=== PATIENT | male | born 1980 | race Caucasian/White ===

== ENCOUNTER 2018-12-15 13:35 | Emergency (ER) | payer SELFPAY ==
--- NOTE | 2018-12-15 13:55 | PDOC ---
Rapid Medical Evaluation Time Seen by Provider: 12/15/18 13:49 Medical Evaluation: I have performed a brief in-person evaluation of this patient. The patient presents with a chief complaint of: substernal CP x 1 month along with slight SOB, worsening this week; hx of HLD; has not yet seen PCP regarding this; +smoker (3-4 cigs/day), denies drug use Pertinent physical exam findings: In nad, lungs clear I have ordered the following: labs, EKG, cxr The patient will proceed to the ED for further evaluation. 12/15/18 13:51
[2018-12-15 13:57] VITALS: BP 126/76; PULSE 68; TEMP 98.2; BMI 24.2
--- NOTE | 2018-12-15 14:15 | EKG ---
Test Reason : Blood Pressure : / mmHG Vent. Rate : 061 BPM Atrial Rate : 061 BPM P-R Int : 154 ms QRS Dur : 096 ms QT Int : 390 ms P-R-T Axes : 057 042 047 degrees QTc Int : 392 ms NORMAL SINUS RHYTHM NON-SPECIFIC INTRA-VENTRICULAR CONDUCTION DELAY NO PREVIOUS ECGS AVAILABLE Confirmed by JIMMIE DIAZ MD ([id number]) on 12/15/2018 2:14:43 PM Referred By: Confirmed By:JIMMIE DIAZ MD
--- NOTE | 2018-12-15 16:39 | PDOC ---
History of Present Illness - General Chief Complaint: Chest Pain Stated Complaint: CHEST PAIN Time Seen by Provider: 12/15/18 13:49 - History of Present Illness Initial Comments: 12/15/18 16:31 CHIEF COMPLAINT: chest pain HISTORY OF PRESENT ILLNESS: 38 yo M with no PMH presents to ED with chest pain x 1 month, worsening in the last two weeks. Patient describes the pain as intermittent and as a pressure, 5/10 and today the pain was worse so he came to be evaluated. Patient reports one episode of vomiting today. Patient also c/ o of a "pressure headache" that began at the same time as his chest discomfort. No recent travel or sick contacts. PAST MEDICAL HISTORY: Denies past medical history FAMILY HISTORY: Denies SOCIAL HISTORY: Current smoker, 5 cigarettes daily. Denies alcohol, illicit drug use. SURGICAL HISTORY: appendectomy ALLERGIES: No known drug allergies REVIEW OF SYSTEMS General/Constitutional: Denies fever or chills. Denies weakness, weight change. HEENT: Denies change in vision. Denies ear pain or discharge. Denies sore throat. Cardiovascular: Worsening chest pain x 1 month. . Respiratory: Denies cough, wheezing, or hemoptysis. Gastrointestinal: Denies nausea, vomiting, diarrhea or constipation. Denies rectal bleeding. Genitourinary: Denies dysuria, frequency, or change in urination. Musculoskeletal: Denies joint or muscle swelling or pain. Denies neck or back pain. Skin and breasts: Denies rash or easy bruising. Neurologic: Denies headache, vertigo, loss of consciousness, or loss of sensation. Psychiatric: Denies depression or anxiety. PHYSICAL EXAM General Appearance: Well-appearing, appropriately dressed. No apparent distress , no intoxication. HEENT: EOMI, PERRLA, normal ENT inspection, normal voice, TMs normal, pharynx normal. No conjunctival pallor. No photophobia, scleral icterus. Neck: Supple. Trachea midline. No tenderness, rigidity, carotid bruit, stridor , lymphadenopathy, or thyromegaly. Respiratory/Chest: Lungs CTAB. No shortness of breath, chest tenderness, respiratory distress, accessory muscle use. No crackles, rales, rhonchi, stridor , wheezing, dullness Cardiovascular: RRR. S1, S2. No JVD, murmur, bradycardia, tachycardia. Vascular Pulses: Dorsalis-Pedis (R): 2+, Dorsalis-Pedis (L): 2+ Gastrointestinal/Abdominal: Normal bowel sounds. Abdomen soft, non-distended. No tenderness or rebound tenderness. No organomegaly, pulsatile mass, guarding , hernia, hepatomegaly, splenomegaly. Lymphatic: No adenopathy, tenderness. Musculoskeletal/Extremities: Normal inspection. FROM of all extremities, normal capillary refill. Pelvis Stable. No CVA tenderness. No tenderness to extremities, pedal edema, swelling, erythema or deformity. Integumentary: Appropriate color, dry, warm. No cyanosis, erythema, jaundice or rash Neurologic: melter assistant II-XII intact. Fully oriented, alert. Appropriate mood/affect. Motor strength 5/5. No appreciable EOM palsy, facial droop or sensory deficit. 12/15/18 16:39 Past History - Past Medical History Allergies/Adverse Reactions: Allergies Allergy/AdvReac Type Severity Reaction Status Date / Time No Known Allergies Allergy Verified 12/15/18 13:53 Home Medications: Ambulatory Orders Docusate Sodium [Colace] 100 mg PO DAILY #14 capsule 12/15/18 COPD: No Hypercholesterolemia: Yes - Immunization History Immunization Up to Date: Yes - Suicide/Smoking/Psychosocial Hx Smoking History: Current every day smoker Number of Cigarettes Smoked Daily: 3 Information on smoking cessation initiated: No Drug/Substance Use Hx: No *Physical Exam - Vital Signs Last Vital Signs Temp Pulse Resp BP Pulse Ox 98.2 F 68 16 126/76 99 12/15/18 13:54 12/15/18 13:54 12/15/18 13:54 12/15/18 13:54 12/15/18 13:54 Heart Score/ECG Review - History History: Slightly suspicious - Electrocardiogram EKG: Normal - Age Age: </= 45 - Risk Factors Risk Factors Heart Score: Yes Smoking History Based on the list above the patient has:: 1-2 risk factors - Troponin Troponin: </= normal limit - Score Heart Score - Total: 1 ED Treatment Course - LABORATORY CBC & Chemistry Diagram: 12/15/18 18:05 12/15/18 18:05 - ADDITIONAL ORDERS Additional order review: Laboratory Results 12/15/18 12/15/18 18:05 18:05 Sodium 140 Potassium 3.9 Chloride 107 Carbon Dioxide 27 Anion Gap 7 L BUN 11.4 Creatinine 0.9 Est GFR (CKD-EPI)AfAm 124.26 Est GFR (CKD-EPI)NonAf 107.21 Random Glucose 92 Calcium 9.4 Total Bilirubin 0.5 AST 29 ALT 48 Alkaline Phosphatase 97 Troponin I < 0.02 Total Protein 7.7 Albumin 4.3 12/15/18 18:05 RBC 4.77 MCV 91.1 MCHC 33.9 RDW 13.5 MPV 8.6 Neutrophils % 67.8 Lymphocytes % 23.1 Monocytes % 6.0 Eosinophils % 2.1 Basophils % 1.0 Medical Decision Making - Medical Decision Making 12/15/18 16:41 38 yo M with no PMH presents to ED with chest pain x 1 month, worsening in the last two weeks. -labs, ekg, cxr 12/15/18 16:46 EKG NSR. Lab unremarkable 12/16/18 01:06 Advised patient to take medication as prescribed and follow up with cardiology. Advised patient of signs and symptoms for return to ED. Patient verbalized understanding and agrees to plan. *DC/Admit/Observation/Transfer Diagnosis at time of Disposition: Constipation Chest pain Qualifiers: Chest pain type: unspecified Qualified Code(s): R07.9 - Chest pain, unspecified - Discharge Dispostion Disposition: HOME Condition at time of disposition: Stable Decision to Admit order: No - Prescriptions Prescriptions: Docusate Sodium [Colace] 100 mg PO DAILY #14 capsule - Referrals Referrals: Gordon Hooper MD [Staff Physician] - - Patient Instructions Printed Discharge Instructions: DI for Atypical Chest Pain, DI for Constipation Additional Instructions: Please follow up with cardiology within the next week for further evaluation of your chest pain. If you develop worsening chest pain, shortness of breath, or any new or worsening symptoms, please return to the ER. Print Language: BELARUSIAN - Post Discharge Activity
[2018-12-15 18:14] LABS: EOS % 2.1 % (0-4.5); HEMATOCRIT 43.5 % (35.4-49); HEMOGLOBIN 14.7 GM/dL (11.7-16.9); LYMPH % 23.1 % (8-40); MCH 30.9 pg (25.7-33.7); MCHC 33.9 g/dl (32.0-35.9); MEAN CELL VOLUME 91.1 fl (80-96); MEAN PLT VOLUME 8.6 fl (7.5-11.1); NEUT % 67.8 % (42.8-82.8); PLATELET COUNT 280 K/MM3 (134-434); RBC 4.77 M/mm3 (4.00-5.60); RDW 13.5 % (11.9-15.9); WHITE BLOOD COUNT 6.9 K/mm3 (4.0-10.0)
[2018-12-15 18:34] LABS: ALBUMIN 4.3 g/dl (3.4-5.0); BILIRUBIN,TOTAL 0.5 mg/dL (0.2-1); BLOOD UREA NITROGEN 11.4 mg/dL (7-18); CALCIUM 9.4 mg/dL (8.5-10.1); CREATININE 0.9 mg/dL (0.55-1.3); POTASSIUM 3.9 mmol/L (3.5-5.1); TOT PROT 7.7 g/dl (6.4-8.2)
== END 2018-12-15 19:21 | disposition home or self-care (01) ==
LOC: JER 13:35
CPT/HCPCS: 36415; 71046-TC-FY; 80053; 84484; 85025; 93005; 93010; 99282-25

== ENCOUNTER 2021-10-22 02:41 | Emergency (ER) | payer SELFPAY ==
[2021-10-22 02:58] VITALS: RESP 20; BMI 25.8
[2021-10-22] MEDS ORDERED: ACETAMINOPHEN 1000 MG/100 ML BAG IVPB ONE (03:30)
[2021-10-22] MEDS ORDERED: SODIUM CHLORIDE 0.9% 500 ML INFUS.BAG IV ONE (03:30)
[2021-10-22] MEDS ORDERED: ACETAMINOPHEN INJECTION 100 ML IVPB ONE (03:38)
[2021-10-22 04:21] LABS: BASO % 0.9 % (0-2.0); EOS % 3.9 % (0-4.5); HEMATOCRIT 42.6 % (35.4-49); HEMOGLOBIN 14.6 GM/dL (11.7-16.9); LYMPH % 34.4 % (8-40); MCH 30.5 pg (25.7-33.7); MCHC 34.1 g/dl (32.0-35.9); MEAN CELL VOLUME 89.2 fl (80-96); MONO % 6.1 % (3.8-10.2); NEUT % 54.7 % (42.8-82.8); PLATELET COUNT 268 10^3/uL (134-434); RBC 4.78 M/mm3 (4.00-5.60); RDW 13.1 % (11.9-15.9); WHITE BLOOD COUNT 8.8 K/mm3 (4.0-10.0)
[2021-10-22 04:34] LABS: CALCIUM 9.1 mg/dL (8.5-10.1)
[2021-10-22 04:35] LABS: ALBUMIN 3.7 g/dl (3.4-5.0); BLOOD UREA NITROGEN 16.7 mg/dL (7-18)
[2021-10-22 04:38] LABS: CREATININE 0.8 mg/dL (0.55-1.3)
[2021-10-22 04:40] LABS: BILIRUBIN,TOTAL 0.4 mg/dL (0.2-1); TOT PROT 7.1 g/dl (6.4-8.2)
[2021-10-22 04:52] LABS: INR 0.95 (0.83-1.09); PROTHROMBIN TIME (PATIENT) 10.9 SEC (9.7-13.0)
[2021-10-22 04:55] LABS: ACTIVATED PTT 29.1 SECONDS (25.2-36.5)
[2021-10-22 06:16] VITALS: BP 124/85; PULSE 50; TEMP 97.9
== END 2021-10-22 06:16 | disposition home or self-care (01) ==
LOC: JER 02:41
PROC: 3E033GC Introduction of Other Therapeutic Substance into Peripheral Vein, Percutaneous Approach (ICD-10-PCS; principal; 2021-10-22)
DX: R06.02 Shortness of breath (principal); R07.9 Chest pain, unspecified
CPT/HCPCS: 0241U-QW; 36415; 71045-TC-FY; 80053; 84484; 85025; 85379; 85610; 85730; 93005; 93010; 99285-25